=== PATIENT | male | born 1990 | race Caucasian/White ===

== ENCOUNTER 2019-12-08 14:56 | Emergency (ER) | payer OTHER ==
[~2019-12-08] VITALS: Ht 180.3 cm; Wt 115.0 kg
[2019-12-08 15:10] VITALS: BP 119/74
[2019-12-08] MEDS ORDERED: AMOX500C25 PO (15:39)
[2019-12-08] MEDS ORDERED: SUMAtriptan 6 MG/0.5 ML VIAL SUBQ ONE (15:50)
[2019-12-08] MEDS ORDERED: APAP/BUTAL/CAFF 325/50/40 MG 1 TAB PO ONE (16:25)
[2019-12-08] MEDS ORDERED: HYDROcodone/APAP 5/325 MG 1 TAB TAB PO ONE (16:50)
[2019-12-08] MEDS ORDERED: KETOROLAC 30 MG/ML VIAL IM ONE (17:35)
[2019-12-08 18:15] VITALS: BP 109/68
== END 2019-12-08 18:14 | disposition home or self-care (01) ==
LOC: MED 14:56
DX: G44.001 Cluster headache syndrome, unspecified, intractable (principal)
CPT/HCPCS: 96372; 99284; J1885; J3030

== ENCOUNTER 2020-05-27 15:01 | Outpatient (CLI) | payer OTHER ==
[~2020-05-27 15:01] MED LIST: AMOX500C25 PO
[2020-05-27 15:52] LABS: APPEARANCE,URINE HAZY (CLEAR); BILIRUBIN,URINE NEGATIVE (NEGATIVE); BLOOD, URINE NEGATIVE (NEGATIVE); COLOR,URINE YELLOW (YELLOW); LEUKOCYTE ESTERASE ,URINE NEGATIVE (NEGATIVE); NITRITE, URINE NEGATIVE (NEGATIVE); UGLUCOSE NEGATIVE (NEGATIVE)
== END 2020-05-27 20:03 | disposition home or self-care (01) ==
LOC: MLB 15:01
PROVIDERS: ATTEND Internal Medicine Geriatric Medicine
DX: R30.0 Dysuria (principal)
CPT/HCPCS: 81003; 87086

== ENCOUNTER 2020-07-08 00:02 | Emergency (ER) | payer OTHER ==
[~2020-07-08] VITALS: Ht 177.8 cm; Wt 112.5 kg
[2020-07-08 00:15] VITALS: BP 134/83
--- NOTE | 2020-07-08 00:18 | NUR ---
TO CHAIR A AMBULATORY
--- NOTE | 2020-07-08 00:37 | NUR ---
LUZ AT CHAIR SIDE FOR MEDICAL EVALUATION.
--- NOTE | 2020-07-08 00:38 | NUR ---
PT ASSESSMENT COMPLETED BY LUZ , NO NURSING INTERVENTIONS NEEDED AT THIS TIME.
[2020-07-08 01:06] VITALS: BP 134/83
--- NOTE | 2020-07-08 01:06 | NUR ---
Patient discharged with v/s stable. Written and verbal after care instructions given and explained. Patient alert, oriented and verbalized understanding of instructions. Ambulatory with steady gait. All questions addressed prior to discharge. ID band removed. Patient advised to follow up with PMD. Rx of MirLax, Hydrocortisone, Motrin & mineral oil given. Patient educated on indication of medication including possible reaction and side effects. Opportunity to ask questions provided and answered.
== END 2020-07-08 01:06 | disposition home or self-care (01) ==
LOC: MED 00:02
DX: K64.9 Unspecified hemorrhoids (principal); R03.0 Elevated blood-pressure reading, without diagnosis of hypertension; F17.210 Nicotine dependence, cigarettes, uncomplicated; Z79.899 Other long term (current) drug therapy; Z98.890 Other specified postprocedural states
CPT/HCPCS: 99282

== ENCOUNTER 2020-11-19 10:12 | Outpatient (CLI) | payer OTHER ==
[2020-11-19 10:28] LABS: BASOPHILS % (AUTO) 0.6 % (0.0-2.0); EOSINOPHILS # (AUTO) 0.1 K/uL (0-0.4); EOSINOPHILS % (AUTO) 1.7 % (0.0-4.0); HEMATOCRIT 45.9 % (36-52); HEMOGLOBIN 15.5 g/dL (12.0-18.0); LYMPHOCYTES # (AUTO) 2.1 K/uL (2.0-11.5); LYMPHOCYTES % (AUTO) 30.7 % (20.5-51.1); MEAN CORPUSCULAR HEMOGLOBIN 29 pg (27-31); MEAN CORPUSCULAR HGB CONC 34 g/dL (33-37); MEAN CORPUSCULAR VOLUME 86.7 fL (80-94); MONOCYTES # (AUTO) 0.7 K/uL (0.8-1.0); MONOCYTES % (AUTO) 10.3 % (1.7-9.3); NEUTROPHILS # (AUTO) 3.9 K/uL (1.8-7.7); NEUTROPHILS % (AUTO) 56.7 % (42.2-75.2); PLATELET COUNT (AUTO) 264 K/uL (140-450); RED BLOOD CELL COUNT(AUTO) 5.29 MIL/uL (4.20-6.10); RED CELL DISTRIBUTION WIDTH 14.3 % (11.6-13.7); WHITE BLOOD COUNT (AUTO) 6.9 K/uL (4.8-10.8)
[2020-11-19 11:00] LABS: ALBUMIN 4.4 g/dL (3.4-5.0); ANION GAP 8.7 (8-16); CARBON DIOXIDE 30.6 mmol/L (21-32); CHOL/HDL RATIO 6.1 (1-4.5); POTASSIUM 4.3 mmol/L (3.5-5.1); THYROID STIMULATING HORMONE 0.88 uIU/mL (0.34-3.74); TOTAL BILIRUBIN 0.7 mg/dL (0.0-1.0)
== END 2020-11-19 20:57 | disposition home or self-care (01) ==
LOC: MLB 10:12
PROVIDERS: ATTEND Internal Medicine Geriatric Medicine
DX: Z00.00 Encounter for general adult medical examination without abnormal findings (principal)
CPT/HCPCS: 36415; 80053; 82306; 84443; 85025

== ENCOUNTER 2021-05-23 20:15 | Emergency (ER) | payer OTHER ==
[~2021-05-23] VITALS: Ht 180.3 cm; Wt 114.8 kg
--- NOTE | 2021-05-23 20:25 | NUR ---
PT TAKEN TO RAD VIA W/C
[2021-05-23 20:47] VITALS: BP 148/85
--- NOTE | 2021-05-23 20:52 | NUR ---
PT AMBULATED TO BED 01
--- NOTE | 2021-05-23 21:00 | NUR ---
RECEIVED IN BED 1 C/O CHEST TIGHTNESS, EPIGASTRIC PAIN, POST NASAL DRIP, COUGH AND SOB FOR 6 DAYS. ATTACHED TO CM = SR WITHOUT ECTOPY PMH: DENIES ALLERGY: CUMIN (TONGUE SWELLING) MED: MUCINEX
[2021-05-23] MEDS ORDERED: KETOROLAC 30 MG/ML VIAL IM ONE (21:15)
[2021-05-23] MEDS ORDERED: CYCL-711 PO (21:53)
[2021-05-23] MEDS ORDERED: NAPR-54 PO (21:53)
[2021-05-23 22:20] VITALS: BP 134/78
--- NOTE | 2021-05-23 22:20 | NUR ---
Patient discharged with v/s stable. Written and verbal after care instructions given and explained. Patient alert, oriented and verbalized understanding of instructions. Ambulatory with steady gait. All questions addressed prior to discharge. ID band removed. Patient advised to follow up with PMD. Rx of FLEXERIL & NAPROSYN given. Patient educated on indication of medication including possible reaction and side effects. Opportunity to ask questions provided and answered.
[2021-05-24] MEDS ORDERED: OMEP40EC23 PO (17:28)
== END 2021-05-23 22:20 | disposition home or self-care (01) ==
LOC: MED 20:15
DX: R07.89 Other chest pain (principal); R07.81 Pleurodynia; F17.210 Nicotine dependence, cigarettes, uncomplicated; K29.70 Gastritis, unspecified, without bleeding; Z88.8 Allergy status to other drugs, medicaments and biological substances
CPT/HCPCS: 71045; 93005; 96372; 99283; J1885

== ENCOUNTER 2021-05-24 16:21 | Emergency (ER) | payer OTHER ==
[~2021-05-24] VITALS: Ht 180.3 cm; Wt 112.0 kg
[~2021-05-24 16:21] MED LIST changes: +CYCL-711 PO; +NAPR-54 PO
[2021-05-24 16:55] VITALS: BP 116/73
--- NOTE | 2021-05-24 17:26 | NUR ---
YANIV OBRIEN SAMPLE COLLETED BY TOYIN SOTO AND WALKED TO LAB
[2021-05-24] MEDS ORDERED: OMEP40EC23 PO (17:28)
[2021-05-24 18:18] VITALS: BP 116/73
--- NOTE | 2021-05-24 18:18 | NUR ---
NO NURSING INTERVENTIONS IMPLEMENTED. Patient discharged with v/s stable. Written and verbal after care instructions given and explained. Patient alert, oriented and verbalized understanding of instructions. Ambulatory with steady gait. All questions addressed prior to discharge. ID band removed. Patient advised to follow up with PMD. Rx of PRILOSEC given. Patient educated on indication of medication including possible reaction and side effects. Opportunity to ask questions provided and answered.
== END 2021-05-24 18:18 | disposition home or self-care (01) ==
LOC: MED 16:21
DX: R05.9 Cough, unspecified (principal); R06.02 Shortness of breath; Z20.822 Contact with and (suspected) exposure to COVID-19
CPT/HCPCS: 99283

== ENCOUNTER 2021-07-24 17:33 | Emergency (ER) | payer OTHER ==
[~2021-07-24] VITALS: Ht 180.3 cm; Wt 116.1 kg
[~2021-07-24 17:33] MED LIST changes: +OMEP40EC23 PO
[2021-07-24 18:48] VITALS: BP 159/93
[2021-07-24] MEDS ORDERED: KETOROLAC 30 MG/ML VIAL IM ONE (19:45)
--- NOTE | 2021-07-24 20:55 | NUR ---
SEE COMPLETE ASSESSMENT
[2021-07-24] MEDS ORDERED: ACET-10509 PO (22:47)
== END 2021-07-24 23:01 | disposition home or self-care (01) ==
LOC: MED 17:33
DX: M25.512 Pain in left shoulder (principal); M54.2 Cervicalgia; Z91.018 Allergy to other foods; Z79.899 Other long term (current) drug therapy; Z98.890 Other specified postprocedural states; V89.2XXA Person injured in unspecified motor-vehicle accident, traffic, initial encounter; Y93.89 Activity, other specified; Y92.89 Other specified places as the place of occurrence of the external cause; Y99.8 Other external cause status
CPT/HCPCS: 73200; 96372; 99284; J1885

== ENCOUNTER 2021-10-19 16:07 | Emergency (ER) | payer OTHER ==
[~2021-10-19] VITALS: Ht 180.3 cm; Wt 113.4 kg
[~2021-10-19 16:07] MED LIST changes: +ACET-10509 PO
[2021-10-19 16:14] VITALS: BP 137/79
[2021-10-19] MEDS ORDERED: KETOROLAC 30 MG/ML VIAL IVP ONE (16:45)
[2021-10-19] MEDS ORDERED: NACL 0.9% 1,000 ML IV SCH (16:45)
[2021-10-19] MEDS ORDERED: ONDANSETRON 4 MG/2 ML VIAL IVP ONE (16:45)
[2021-10-19 17:03] LABS: BASOPHILS % (AUTO) 0.5 % (0.0-2.0); EOSINOPHILS # (AUTO) 0.1 K/uL (0-0.4); EOSINOPHILS % (AUTO) 1.9 % (0.0-4.0); HEMATOCRIT 42.2 % (36-52); HEMOGLOBIN 14.8 g/dL (12.0-18.0); LYMPHOCYTES # (AUTO) 2.9 K/uL (2.0-11.5); LYMPHOCYTES % (AUTO) 37.6 % (20.5-51.1); MEAN CORPUSCULAR HEMOGLOBIN 30 pg (27-31); MEAN CORPUSCULAR HGB CONC 35 g/dL (33-37); MEAN CORPUSCULAR VOLUME 85.3 fL (80-94); MONOCYTES # (AUTO) 0.8 K/uL (0.8-1.0); MONOCYTES % (AUTO) 9.8 % (1.7-9.3); NEUTROPHILS # (AUTO) 3.8 K/uL (1.8-7.7); NEUTROPHILS % (AUTO) 50.2 % (42.2-75.2); PLATELET COUNT (AUTO) 301 K/uL (140-450); RED BLOOD CELL COUNT(AUTO) 4.95 MIL/uL (4.20-6.10); RED CELL DISTRIBUTION WIDTH 13.2 % (11.6-13.7); WHITE BLOOD COUNT (AUTO) 7.6 K/uL (4.8-10.8)
[2021-10-19 17:25] LABS: ALBUMIN 4.1 g/dL (3.4-5.0); TOTAL BILIRUBIN 0.5 mg/dL (0.0-1.0)
--- NOTE | 2021-10-19 17:49 | NUR ---
31 y/o male, c/o abd pain, n&v, and lower back pain. skin is pink/warm/dry. a&o x4 with even and steady gait. lungs clear bl, heart rate even and regular. pt denies dysuria, hematuria, urinary frequency or retention, or anyone sick in the household with the same symptoms. pt denies any fever, cp, sob, or cough at this time. pt states pain is 10/10 at this time. vss. patient positioned for comfort. hob elevated. bed down. ermd made aware of pt. abd sounds x4 normoactive, abd round/soft/tender/guarding. pmh: gastritis, h.pylori med: omeprazole (no relief) nka
--- NOTE | 2021-10-19 18:20 | NUR ---
consent for ct obtained at this time
--- NOTE | 2021-10-19 19:14 | NUR ---
Pt report given to Griffin SOTO. Transfer of care at this time.
[2021-10-19 19:40] VITALS: BP 124/56
--- NOTE | 2021-10-19 19:40 | NUR ---
Patient discharged with v/s stable. Written and verbal after care instructions given and explained. Patient verbalized understanding. Ambulatory with steady gait. All questions addressed prior to discharge. Advised to follow up with PMD.
== END 2021-10-19 19:40 | disposition home or self-care (01) ==
LOC: MED 16:07
DX: K58.9 Irritable bowel syndrome, unspecified (principal); Z79.899 Other long term (current) drug therapy; Z79.1 Long term (current) use of non-steroidal anti-inflammatories (NSAID); Z79.2 Long term (current) use of antibiotics; Z91.018 Allergy to other foods
CPT/HCPCS: 36415; 74177; 80053; 81002; 83690; 85025; 96361; 96374; 96375; 99285; J1885; J2405; J7030; Q9967

== ENCOUNTER 2021-11-15 18:01 | Emergency (ER) | payer OTHER ==
[~2021-11-15] VITALS: Ht 180.3 cm; Wt 110.2 kg
[2021-11-15 18:24] VITALS: BP 149/81
--- NOTE | 2021-11-15 19:16 | NUR ---
AMBULATED TO BED #7
--- NOTE | 2021-11-15 19:51 | NUR ---
Yong reyes in EDM - 11/15/21 at 1956 by JANESSA 31/M AM C/O CHEST TIGHTNESS XYDAY. RADIATING TO THROAT, SHOULDERS, AND LT ARM. 02/28 PAIN. MEDHX: ACID REFLUX, GASTRITIS, INGUINAL HERNIA ALLERGY: NOAH
--- NOTE | 2021-11-15 19:52 | NUR ---
31/M AMBULATORY, AAOX4 BIB SELF C/O CHEST TIGHTNESS X1DAY. RADIATING TO THROAT, SHOULDERS, AND LEFT ARM. STATED THAT PAIN IS CONSTANT, 12/29. STATED "FEELS LIKE PRESSURE AND TIGHTNESS ON MY CHEST. PMHX: ACID REFLUX, GASTRITIS, INGUINAL HERNIA MEDS OMEPRAZOLE NKA
--- NOTE | 2021-11-15 20:00 | NUR ---
MD ROWAN AT BEDSIDE
[2021-11-15] MEDS ORDERED: IBUP-2213 PO (20:04)
[2021-11-15] MEDS ORDERED: ACET-8386 PO (20:04)
[2021-11-15 20:15] VITALS: BP 142/62
--- NOTE | 2021-11-15 20:16 | NUR ---
Patient discharged with v/s stable. Written and verbal after care instructions given onChest wall pain and explained. Patient alert, oriented and verbalized understanding of instructions. Ambulatory with steady gait. All questions addressed prior to discharge. ID band removed. Patient advised to follow up with PMD. Rx of Hydrocodon/Acetaminophen, ibuprofen given. Patient educated on indication of medication including possible reaction and side effects. Opportunity to ask questions provided and answered.
--- NOTE | 2021-11-15 20:26 | NUR ---
The patient's care was reviewed and supervised by Christina Sumner RN.
--- NOTE | 2021-11-15 20:26 | NUR ---
The patient's care was reviewed and supervised by Ellen Arthur RN. Chart checked.
== END 2021-11-15 20:16 | disposition home or self-care (01) ==
LOC: MED 18:01
DX: R07.89 Other chest pain (principal); K21.9 Gastro-esophageal reflux disease without esophagitis; F17.210 Nicotine dependence, cigarettes, uncomplicated; Z98.890 Other specified postprocedural states; Z79.899 Other long term (current) drug therapy; Z79.1 Long term (current) use of non-steroidal anti-inflammatories (NSAID); Z79.2 Long term (current) use of antibiotics; Z91.018 Allergy to other foods
CPT/HCPCS: 93005; 99283

== ENCOUNTER 2022-01-13 09:16 | Outpatient (CLI) | payer OTHER ==
[~2022-01-13 09:16] MED LIST changes: +ACET-8386 PO; +IBUP-2213 PO
[2022-01-13 10:01] LABS: CHOL/HDL RATIO 5.3 (1-4.5)
== END 2022-01-13 20:02 | disposition home or self-care (01) ==
LOC: MLB 09:16
PROVIDERS: ATTEND Internal Medicine Geriatric Medicine
DX: E78.5 Hyperlipidemia, unspecified (principal); E55.9 Vitamin D deficiency, unspecified
CPT/HCPCS: 36415; 82306

== ENCOUNTER 2022-07-20 21:18 | Emergency (ER) | payer OTHER ==
[~2022-07-20] VITALS: Ht 177.8 cm; Wt 149.7 kg
[~2022-07-20 21:18] MED LIST changes: -ACET-8386 PO; +ACET-8905 PO
[2022-07-20 21:40] VITALS: BP 160/90
--- NOTE | 2022-07-20 21:43 | NUR ---
TO LOBBY A/W BED AMBULATORY
--- NOTE | 2022-07-20 22:18 | NUR ---
URINE COLLECTED AND SENT
[2022-07-20 22:27] LABS: APPEARANCE,URINE HAZY (CLEAR); BILIRUBIN,URINE NEGATIVE (NEGATIVE); BLOOD, URINE NEGATIVE (NEGATIVE); COLOR,URINE YELLOW (YELLOW); LEUKOCYTE ESTERASE ,URINE NEGATIVE (NEGATIVE); NITRITE, URINE NEGATIVE (NEGATIVE); UGLUCOSE NEGATIVE (NEGATIVE)
[2022-07-20 22:44] LABS: RBC,URINE 0-5 /HPF (0-5); URINE AMORPHOUS URATE 1+ /HPF (None Seen); WBC,URINE 0-5 /HPF (0-5)
--- NOTE | 2022-07-20 23:46 | NUR ---
PT TO BED #4
[2022-07-21] MEDS ORDERED: PYR100 PO (00:19)
[2022-07-21] MEDS ORDERED: DOXY-690 PO (00:19)
[2022-07-21] MEDS ORDERED: CEPH-588 PO (00:19)
[2022-07-21] MEDS ORDERED: cefTRIAXone 500 MG in LIDOCAINE MPF 1% 1 ML IM ONE (00:20)
[2022-07-21] MEDS ORDERED: KETOROLAC 30 MG/ML VIAL IM ONE (00:20)
[2022-07-21] MEDS ORDERED: PHENAZOPYRIDINE 100 MG TAB PO ONE (00:20)
[2022-07-21] MEDS ORDERED: cefTRIAXone 500 MG VIAL ONE (00:41)
[2022-07-21] MEDS ORDERED: LIDOCAINE MPF 1% 5 ML ONE (00:42)
--- NOTE | 2022-07-21 01:05 | NUR ---
Patient discharged with v/s stable. Written and verbal after care instructions given and explained. Patient alert, oriented and verbalized understanding of instructions. Ambulatory with steady gait. All questions addressed prior to discharge. ID band removed. Patient advised to follow up with PMD. Rx of KEFLEX, DOXYCYCLINE, AND PYDIRIUM given. Patient educated on indication of medication including possible reaction and side effects. Opportunity to ask questions provided and answered.
== END 2022-07-21 01:05 | disposition home or self-care (01) ==
LOC: MED 21:18
DX: N39.0 Urinary tract infection, site not specified (principal); R30.0 Dysuria; R11.0 Nausea; K21.9 Gastro-esophageal reflux disease without esophagitis; Z98.890 Other specified postprocedural states; Z79.899 Other long term (current) drug therapy; Z91.018 Allergy to other foods
CPT/HCPCS: 81001; 87491; 99283; J0696; J1885; J2001

== ENCOUNTER 2022-07-27 20:03 | Emergency (ER) | payer OTHER ==
[~2022-07-27] VITALS: Ht 177.8 cm; Wt 106.6 kg
[~2022-07-27 20:03] MED LIST changes: +CEPH-588 PO; +DOXY-690 PO; +PYR100 PO
[2022-07-27 20:20] VITALS: BP 144/80
--- NOTE | 2022-07-27 20:23 | NUR ---
TO LOBBY A/W BED AMBULATORY
[2022-07-27] MEDS ORDERED: KETOROLAC 30 MG/ML VIAL IM ONE (20:40)
--- NOTE | 2022-07-27 20:51 | NUR ---
CALLED PT TO BED. NO ANSWER
[2022-07-27 21:22] LABS: BASOPHILS % (AUTO) 0.4 % (0.0-2.0); EOSINOPHILS # (AUTO) 0.1 K/uL (0-0.4); EOSINOPHILS % (AUTO) 0.9 % (0.0-4.0); HEMOGLOBIN 14.6 g/dL (12.0-18.0); LYMPHOCYTES # (AUTO) 2.2 K/uL (2.0-11.5); MEAN CORPUSCULAR HEMOGLOBIN 29 pg (27-31); MEAN CORPUSCULAR HGB CONC 35 g/dL (33-37); MEAN CORPUSCULAR VOLUME 84.2 fL (80-94); MONOCYTES % (AUTO) 10.4 % (1.7-9.3); NEUTROPHILS # (AUTO) 6.6 K/uL (1.8-7.7); NEUTROPHILS % (AUTO) 66.3 % (42.2-75.2); PLATELET COUNT (AUTO) 290 K/uL (140-450); RED BLOOD CELL COUNT(AUTO) 4.99 MIL/uL (4.20-6.10); RED CELL DISTRIBUTION WIDTH 13.3 % (11.6-13.7); WHITE BLOOD COUNT (AUTO) 9.9 K/uL (4.8-10.8)
[2022-07-27 21:25] LABS: APPEARANCE,URINE CLEAR (CLEAR); BILIRUBIN,URINE NEGATIVE (NEGATIVE); BLOOD, URINE NEGATIVE (NEGATIVE); COLOR,URINE YELLOW (YELLOW); LEUKOCYTE ESTERASE ,URINE NEGATIVE (NEGATIVE); NITRITE, URINE NEGATIVE (NEGATIVE); UGLUCOSE NEGATIVE (NEGATIVE)
--- NOTE | 2022-07-27 21:26 | NUR ---
URINE OBTAINED AND SENT TO LAB
--- NOTE | 2022-07-27 21:40 | NUR ---
32YR OLD MALE BIB SELF C/O OF ABD /FLANK PAIN X2 WEEKS. PT IS CURRENTLY BEING TREATED WITH ABX FOR KIDNEY STONES. WAS SEEN HERE 2 WEEKS AGO. PT STATES HAVING A RASH SINCE TAKING ABX. RESP EVEN AND UNLABORED. PAIN LEVEL 8/10 SHARP /DULL. NKDA
[2022-07-27 21:45] LABS: ALBUMIN 4.4 g/dL (3.4-5.0); ANION GAP 11.9 (8-16); CARBON DIOXIDE 29.6 mmol/L (21-32); CREATININE 0.9 mg/dL (0.6-1.3); POTASSIUM 3.5 mmol/L (3.5-5.1); TOTAL BILIRUBIN 0.8 mg/dL (0.0-1.0)
[2022-07-27] MEDS ORDERED: BEN10 PO (22:05)
[2022-07-27] MEDS ORDERED: PHEN28OI6 TP (22:05)
--- NOTE | 2022-07-27 22:15 | NUR ---
Patient discharged with v/s stable. Written and verbal after care instructions given and explained. Patient alert, oriented and verbalized understanding of instructions. Ambulatory with steady gait. All questions addressed prior to discharge. ID band removed. Patient advised to follow up with PMD. Rx of BENTYL PHENYLEPH given. Patient educated on indication of medication including possible reaction and side effects. Opportunity to ask questions provided and answered.
== END 2022-07-27 22:15 | disposition home or self-care (01) ==
LOC: MED 20:03
DX: K64.4 Residual hemorrhoidal skin tags (principal); K21.9 Gastro-esophageal reflux disease without esophagitis; Z79.899 Other long term (current) drug therapy; Z91.018 Allergy to other foods
CPT/HCPCS: 36415; 71045; 74176; 80053; 81003; 83690; 85025; 96372; 99285; J1885